=== PATIENT | female | born 1995 | race Hispanic/Latino ===

== ENCOUNTER 2021-03-26 02:51 | Day surgery (SDC) | payer OTHER ==
[2021-03-26 03:14] VITALS: BMI 25.0
[2021-03-26] MEDS ORDERED: hydrALAZINE 20 MG/ML VIAL SLOW IVP PRN (03:56)
[2021-03-26 05:01] LABS: Bilirubin Neg (Negative); Blood, Urine Negative (Negative); Clarity Clear (Clear); Glucose, Urine (Dipstick) Normal (Negative); Ketone, Urine Negative (Negative); Leukocyte Negative (Negative); Nitrite Negative (Negative); Protein, Urine (Dipstick) 15 mg/dl (Neg-Trace)
[2021-03-26 05:03] LABS: Urine Culture Reflex No No
[2021-03-26 05:16] LABS: Bacteria/HPF 1+ HPF (None Seen); RBC/HPF 0-3 HPF (0-3); Squamous Epithelial 0-3 HPF (0-3); WBC/HPF 0-3 HPF (0-3)
[2021-03-26] MEDS ORDERED: Butorphanol Tartrate 1 MG/ML VIAL SLOW IVP PRN (06:28)
[2021-03-26] MEDS: Lactated Ringer's 1,000 ML IV SCH ×2 (06:45→07:05)
[2021-03-26] MEDS ORDERED: CEFAZOLIN 1 GM in Sodium Chloride 0.9% 100 ML IVPB SCH (08:00)
== END 2021-03-26 08:41 | disposition home or self-care (01) ==
LOC: CSHLD/OP 02:51
PROVIDERS: ATTEND Obstetrics & Gynecology
DX: O47.03 False labor before 37 completed weeks of gestation, third trimester (principal); O23.43 Unspecified infection of urinary tract in pregnancy, third trimester; N39.0 Urinary tract infection, site not specified; Z3A.32 32 weeks gestation of pregnancy
CPT/HCPCS: 87086; 96361; 96365; 96366; 96375; 99283; J0595; J0690; J3490

== ENCOUNTER 2021-05-08 15:34 | Day surgery (SDC) | payer OTHER ==
[2021-05-08 16:14] VITALS: BMI 25.8
[2021-05-08] MEDS ORDERED: hydrALAZINE 20 MG/ML VIAL SLOW IVP PRN (17:53)
== END 2021-05-08 17:57 | disposition home or self-care (01) ==
LOC: CSHLD/OP 15:34
PROVIDERS: ATTEND Obstetrics & Gynecology
DX: O47.1 False labor at or after 37 completed weeks of gestation (principal); Z3A.38 38 weeks gestation of pregnancy
CPT/HCPCS: 99283

== ENCOUNTER 2021-05-13 06:36 | Inpatient (IN) | payer OTHER ==
[2021-05-11 14:37] LABS: SARS-CoV-2 PCR by NAA Not Detected (NotDetected)
[2021-05-13 07:14] VITALS: BMI 26.3
[2021-05-13] MEDS ORDERED: ePHEDrine Sulfate 50 MG/10 ML VIAL ONE (08:00)
[2021-05-13] MEDS ORDERED: Bupivacaine 0.25% HCL 30 ML VIAL ONE (08:00)
[2021-05-13 08:19] LABS: Hemoglobin 8.1 g/dL (12.0-15.5); Mean Corpuscular HGB CONC 28.7 g/dL (32.0-36.0); Mean Corpuscular Hemoglobin 19.5 pg (27.0-33.0); Mean Corpuscular Volume 67.8 fl (81.6-98.3); Platelet Count 239 10x3/uL (150-450); RBC Distribution Width 17.9 % (11.5-14.5); Red Blood Cell (RBC) Count 4.16 10x6/uL (3.90-5.03); White Blood Cell (WBC) Count 9.1 10x3/uL (3.5-10.5)
[2021-05-13 08:52] LABS: HBSAg Index 0.17 S/CO (0-0.99); Hep B Surf Ag Non-Reactive S/CO (NonReactive); Syphilis Antibody Nonreactive (Nonreactive); Syphilis Antibody Index 0.06 S/CO (<1.00 Non-Reactive)
[2021-05-13] MEDS ORDERED: Fentanyl 2 mcg/Bup 0.1% Cadd 100 ML ONE (10:31)
[2021-05-13] MEDS ORDERED: Lidocaine 1% (PF) 30 ML VIAL SC PRN (10:31)
[2021-05-13] MEDS ORDERED: Promethazine HCl 25 MG/ML VIAL IM PRN ×2 (10:32→14:03)
[2021-05-13] MEDS ORDERED: hydrALAZINE 20 MG/ML VIAL SLOW IVP PRN ×2 (10:32→15:35)
[2021-05-13] MEDS ORDERED: Ondansetron PF 4 MG/2 ML Vial IVP PRN ×3 (10:32→15:35)
[2021-05-13] MEDS ORDERED: Lactated Ringer's 1,000 ML IV SCH (10:45)
[2021-05-13] MEDS ORDERED: NS w/ Oxytocin 30 units 500 ML IV SCH ×3 (10:45→15:45)
[2021-05-13] MEDS ORDERED: Hydrocerin (Eucerin) Cream 120 gm Jar TOP PRN (14:03)
[2021-05-13] MEDS ORDERED: diphenhydrAMINE 50 MG/ML VIAL IVP PRN (14:03)
[2021-05-13] MEDS ORDERED: ePHEDrine Sulfate 50 MG/10 ML VIAL SLOW IVP PRN (14:03)
[2021-05-13] MEDS ORDERED: Acetaminophen 325 MG TAB PO PRN (14:03)
[2021-05-13] MEDS ORDERED: Naloxone HCl 0.4 mg/ml Vial IVP PRN ×2 (14:03)
[2021-05-13] MEDS ORDERED: Fentanyl 2 mcg/Bupivacaine 0.1% Cassette 100 ML EPIDURAL SCH (14:15)
[2021-05-13] MEDS ORDERED: Communication Order-Pharmacy FS SCH (14:15)
[2021-05-13] MEDS ORDERED: Lactated Ringer's 1,000 ML IV PRN (14:26)
[2021-05-13] MEDS ORDERED: diphenhydrAMINE 25 MG CAP PO PRN (15:35)
[2021-05-13] MEDS ORDERED: Zolpidem Tartrate 5 MG TAB PO PRN (15:35)
[2021-05-13] MEDS ORDERED: Preparation H Ointment 28 GM TUBE PR PRN (15:35)
[2021-05-13] MEDS ORDERED: Misoprostol 200 MCG TAB VAG PRN (15:35)
[2021-05-13] MEDS ORDERED: Benzocaine-Menthol 82.5 ML CAN TOP PRN (15:35)
[2021-05-13] MEDS ORDERED: Lanolin Ointment 7 GM TUBE TOP PRN (15:35)
[2021-05-13] MEDS ORDERED: Milk Of Magnesia 30 ML UDCUP PO PRN (15:35)
[2021-05-13] MEDS ORDERED: Bisacodyl 10 MG SUPP PR PRN (15:35)
[2021-05-13] MEDS ORDERED: Boostrix 0.5 ML (Tdap) VIAL IM ONE (15:35)
[2021-05-13] MEDS ORDERED: HYDROcodone/Acetaminophen 5/325 mg Tablet PO PRN ×2 (15:35)
[2021-05-13] MEDS: Ferrous Sulfate 325 MG TAB PO SCH (22:04)
[2021-05-13] MEDS: Ibuprofen 800 MG TAB PO SCH (22:05)
[2021-05-13] MEDS: Docusate 100 MG CAP PO SCH (22:05)
[2021-05-14] MEDS: Ibuprofen 800 MG TAB PO SCH ×2 (05:19→14:56)
[2021-05-14 05:45] LABS: Hemoglobin 7.7 g/dL (12.0-15.5); Mean Corpuscular HGB CONC 29.6 g/dL (32.0-36.0); Mean Corpuscular Hemoglobin 19.8 pg (27.0-33.0); Mean Corpuscular Volume 66.8 fl (81.6-98.3); Platelet Count 238 10x3/uL (150-450); RBC Distribution Width 18.2 % (11.5-14.5); Red Blood Cell (RBC) Count 3.89 10x6/uL (3.90-5.03); White Blood Cell (WBC) Count 12.9 10x3/uL (3.5-10.5)
[2021-05-14] MEDS ORDERED: Prenatal Vitamin 1 TAB PO SCH (09:00)
[2021-05-14] MEDS: Ferrous Sulfate 325 MG TAB PO SCH (09:26)
[2021-05-14] MEDS: Docusate 100 MG CAP PO SCH (09:27)
[2021-05-14 16:35] VITALS: BP 131/80; TEMP 98.5
== END 2021-05-14 18:00 | disposition home or self-care (01) | DRG 807 ==
LOC: CSHLD/OP 06:36 → CSHLD 07:52 → CSHPP 18:35
PROVIDERS: ADMIT Obstetrics & Gynecology; ATTEND Obstetrics & Gynecology
PROC: 10E0XZZ Delivery of Products of Conception, External Approach (ICD-10-PCS; principal; 2021-05-13)
PROC: 0HQ9XZZ Repair Perineum Skin, External Approach (ICD-10-PCS; 2021-05-13)
DX: O70.0 First degree perineal laceration during delivery (principal); Z37.0 Single live birth; Z3A.39 39 weeks gestation of pregnancy; Z20.822 Contact with and (suspected) exposure to COVID-19
CPT/HCPCS: 36415; 51702; 85027; 86780; 86850; 86900; 86901; 87340; J2590; J7120; S0020; U0003; U0005

== ENCOUNTER 2021-10-25 18:51 | Emergency (ER) | payer OTHER ==
[2021-10-25 20:04] LABS: #Eosinphils 0.2 10x3/uL (0.0-0.5); #Monocytes 0.6 10x3/uL (0.0-1.1); %Basophils 0.3 % (0.0-2.0); %Eosinophils 2.9 % (0.0-6.0); %Lymphocytes 27.2 % (18.0-47.0); %Monocytes 9.4 % (0.0-10.0); Hemoglobin 9.4 g/dL (12.0-15.5); Mean Corpuscular HGB CONC 31.4 g/dL (32.0-36.0); Mean Corpuscular Hemoglobin 22.4 pg (27.0-33.0); Mean Corpuscular Volume 71.2 fl (81.6-98.3); Mean Platelet Volume 10.9 fl (7.4-10.4); Platelet Count 325 10x3/uL (150-450); RBC Distribution Width 19.7 % (11.5-14.5); White Blood Cell (WBC) Count 6.6 10x3/uL (3.5-10.5)
[2021-10-25 20:14] LABS: Anion Gap 14 mmol/L (10-20); BUN (Urea Nitrogen) 6 mg/dL (7.0-18.7); Calc. Creatinine Clearance 0 mL/min (70-130); Carbon Dioxide 22 mmol/L (22-29); Chloride 107 mmol/L (98-107); Glucose 90 mg/dL (70-105); Potassium 3.6 mmol/L (3.5-5.1); Sodium 139 mmol/L (136-145)
[2021-10-25 20:23] LABS: Bilirubin Neg (Negative); Blood, Urine 250 (Negative); Clarity Cloudy (Clear); Glucose, Urine (Dipstick) Normal (Negative); Ketone, Urine 5 mg/dL (Negative); Leukocyte 25 (Negative); Nitrite Negative (Negative); Protein, Urine (Dipstick) 30 mg/dl (Neg-Trace); Specific Gravity, Urine 1.025 (1.002-1.036)
[2021-10-25 20:46] LABS: RBC/HPF Greater than 50 HPF (0-3)
[2021-10-25 20:47] LABS: Bacteria/HPF None Seen HPF (None Seen); Squamous Epithelial 0-3 HPF (0-3); WBC/HPF 0-3 HPF (0-3)
== END 2021-10-25 23:38 | disposition home or self-care (01) ==
LOC: CSHERS 18:51
DX: O20.0 Threatened abortion (principal); Z3A.01 Less than 8 weeks gestation of pregnancy
CPT/HCPCS: 76856; 80048; 81003; 81015; 84702; 85025